=== PATIENT | male | born 1955 | race American Indian/Alaskan Native ===

== ENCOUNTER 2016-12-15 19:42 | Emergency (ER) | payer OTHER ==
[2016-12-15 20:49] LABS: Basophils % (Auto) 0.7 % (0.0-1.8); Eosinophils % (Auto) 0.8 % (0.0-4.3); Hemoglobin 13.4 gm/dl (11.8-15.2); Mean Corpuscular HGB Conc 34 % (32-34); Mean Corpuscular Hemoglobin 31 pg (28-32); Mean Corpuscular Volume 93 fl (84-94); Platelet Count 183 K/mm3 (140-440); Red Blood Count 4.32 M/mm3 (3.65-5.03); Red Cell Distribution Width 12.9 % (13.2-15.2); White Blood Count 10.5 K/mm3 (4.5-11.0)
[2016-12-15 21:01] LABS: Anion Gap 19 mmol/L; BUN/Creatinine Ratio 9.23; Blood Urea Nitrogen 12 mg/dL (9-20); Calcium 9.5 mg/dL (8.4-10.2); Carbon Dioxide 28 mmol/L (22-30); Chloride 92.5 mmol/L (98-107); Glucose 169 mg/dL (75-100); Potassium 3.4 mmol/L (3.6-5.0); Sodium 136 mmol/L (137-145)
--- NOTE | 2016-12-15 22:22 | Cat Scan Report ---
FINAL REPORT PROCEDURE: CT HEAD/BRAIN WO CON TECHNIQUE: Computerized tomography of the head was performed without contrast material. HISTORY: HEADACHE COMPARISON: No prior studies are available for comparison. FINDINGS: No CT evidence of intracranial mass, hemorrhage, acute territorial infarction, or hydrocephalus. Intracranial arteries are symmetric in density. Calvarium is intact. Visualized paranasal sinuses and mastoids are aerated. IMPRESSION: No CT evidence of acute abnormality
[2016-12-15 23:46] VITALS: BP 145/103
[2016-12-15] MEDS ORDERED: TYLENOL PO ONE (23:49)
--- NOTE | 2016-12-16 19:18 | ED Elopement Review ---
ED Pt Elopement review - Results review Lab results: Laboratory Tests 12/15/16 12/15/16 20:31 20:31 WBC 10.5 RBC 4.32 Hgb 13.4 Hct 40.0 MCV 93 MCH 31 MCHC 34 RDW 12.9 L Plt Count 183 Lymph % (Auto) 14.2 [place] % (Auto) 6.2 Eos % (Auto) 0.8 Baso % (Auto) 0.7 Lymph # 1.5 [place] # 0.7 Eos # 0.1 Baso # 0.1 Seg Neutrophils % 78.1 H Seg Neutrophils # 8.2 H Sodium 136 L Potassium 3.4 L Chloride 92.5 L Carbon Dioxide 28 Anion Gap 19 BUN 12 Creatinine 1.3 Estimated GFR > 60 BUN/Creatinine Ratio 9.23 Glucose 169 H Calcium 9.5 - Call Back decision Pt Call Back Decision: No action required
== END 2016-12-16 00:05 | disposition left against medical advice (07) ==
LOC: ED 19:42
DX: R51 Headache (principal); I10 Essential (primary) hypertension; Z88.8 Allergy status to other drugs, medicaments and biological substances; Z91.02 Food additives allergy status; Z53.21 Procedure and treatment not carried out due to patient leaving prior to being seen by health care provider
CPT/HCPCS: 36415; 70450; 80048; 85025